=== PATIENT | female | born 1970 | race Caucasian/White ===

== ENCOUNTER 2016-11-24 23:52 | Emergency (ER) | payer OTHER ==
[~2016-11-24] VITALS: Ht 182.9 cm; Wt 86.2 kg
[2016-11-25] MEDS ORDERED: VENTOLIN 90 MCG INH (00:13)
[2016-11-25] MEDS ORDERED: NAPR500T3 PO (00:14)
[2016-11-25] MEDS ORDERED: FERR325T28 PO (00:15)
--- NOTE | 2016-11-25 00:30 | NUR ---
Patient discharged to home in stable conditon. Written and verbal after care instructions given. Patient verbalizes understanding of instructions. walked out of ER with steady gait
== END 2016-11-25 00:31 | disposition home or self-care (01) ==
LOC: ER 23:52
DX: Z76.0 Encounter for issue of repeat prescription (principal); F17.200 Nicotine dependence, unspecified, uncomplicated
CPT/HCPCS: A4663

== ENCOUNTER 2016-12-06 08:53 | Emergency (ER) | payer OTHER ==
[~2016-12-06] VITALS: Ht 182.9 cm; Wt 83.9 kg
[~2016-12-06 08:53] MED LIST: FERR325T28 PO; NAPR500T3 PO; VENTOLIN 90 MCG INH
[2016-12-06] MEDS ORDERED: HYDROMORPHONE 1 MG/1 ML DISP.SYRIN IV ONE (09:30)
[2016-12-06] MEDS ORDERED: IV NORMAL SALINE 1000 ML BAG IV ONE (09:30)
[2016-12-06] MEDS ORDERED: ONDANSETRON 4 MG/2 ML VIAL IV ONE (09:30)
[2016-12-06 09:48] LABS: BASOPHILS % (AUTO) 0.3 % (0.0-2.0); EOSINOPHILS # (AUTO) 0.1 K/uL (0.0-0.7); EOSINOPHILS % (AUTO) 1.5 % (0.0-7.0); HEMATOCRIT 37.9 % (31.2-41.9); HEMOGLOBIN 12.7 g/dL (10.9-14.3); LYMPHOCYTES # (AUTO) 1.7 K/uL (20.0-40.0); LYMPHOCYTES % (AUTO) 19.7 % (20.5-51.5); MEAN CORPUSCULAR HEMOGLOBIN 28.9 uug (24.7-32.8); MEAN CORPUSCULAR HGB CONC 34 g/dL (32.3-35.6); MEAN CORPUSCULAR VOLUME 86.3 fL (75.5-95.3); MONOCYTES # (AUTO) 0.4 K/uL (2.0-10.0); MONOCYTES % (AUTO) 4.6 % (0.0-11.0); NEUTROPHILS # (AUTO) 6.4 K/uL (1.8-8.9); NEUTROPHILS % (AUTO) 73.9 % (38.5-71.5); PLATELET COUNT (AUTO) 306 K/uL (179-408); RED BLOOD CELL COUNT(AUTO) 4.39 MIL/uL (3.63-4.92); RED CELL DISTRIBUTION WIDTH 13.2 % (12.3-17.7); WHITE BLOOD COUNT (AUTO) 8.6 K/uL (3.8-11.8)
[2016-12-06 09:54] LABS: CALCIUM 8.9 mg/dL (8.5-10.1); CREATININE 0.8 mg/dL (0.6-1.3); POTASSIUM 3.4 mmol/L (3.5-5.1)
[2016-12-06] MEDS ORDERED: ONDANSETRON 4 MG/2 ML VIAL ONE (09:54)
[2016-12-06] MEDS ORDERED: HYDROMORPHONE 1 MG/1 ML DISP.SYRIN ONE (09:54)
[2016-12-06 10:00] LABS: ALBUMIN 3.3 g/dL (3.4-5.0); BILIRUBIN,TOTAL 0.7 mg/dL (0.2-1.0)
[2016-12-06 10:14] LABS: BILIRUBIN,DIRECT 0.1 mg/dL (0.0-0.2)
[2016-12-06 10:59] LABS: *BLOOD, URINE Trace-intact (NEGATIVE); *CLARITY,URINE TURBID (CLEAR); *COLOR,URINE YELLOW (YELLOW); *KETONES,URINE NEGATIVE (NEGATIVE); *PROTEIN,URINE 1+ (NEGATIVE); LEUKOCYTE ESTERASE ,URINE NEGATIVE (NEGATIVE); NITRITE, URINE NEGATIVE (NEGATIVE); PH,URINE 5.5 (5.0-8.0); UGLUCOSE NEGATIVE (NEGATIVE)
[2016-12-06 11:12] LABS: *BILIRUBIN,URIN 1+ (NEGATIVE)
[2016-12-06 11:13] LABS: BACTERIA,URINE MANY /HPF (NONE SEEN); CALCIUM OXALATE CRYSTALS,UR FEW /HPF (NONE SEEN); SQUAMOUS EPITHELIAL CELL,UR MODERATE /HPF (NONE SEEN)
[2016-12-06] MEDS ORDERED: CEFTRIAXONE 1 G in IV DEXTROSE 5% 50 ML IV ONE (11:30)
[2016-12-06] MEDS ORDERED: CEFTRIAXONE 1 G VIAL ONE (11:31)
--- NOTE | 2016-12-06 12:02 | NUR ---
Patient discharged to home in stable conditon. Written and verbal after care instructions given. Patient verbalizes understanding of instructions.PT WALKS IN STEADY GAIT, SAYS FEELS BETTER, DENEIS PAIN OR NAUSEA AT THIS POINT. PT NOT DRIVING, ACCOMPANIED BY SO.
[2016-12-06 12:08] VITALS: BP 119/69
== END 2016-12-06 12:03 | disposition home or self-care (01) ==
LOC: ER 08:53
DX: N39.0 Urinary tract infection, site not specified (principal); F17.200 Nicotine dependence, unspecified, uncomplicated
CPT/HCPCS: 36415; 83690; 84703; 85025; A4663; J0696; J1170; J2405; J3490; J7030

== ENCOUNTER 2018-01-03 22:58 | Emergency (ER) | payer OTHER ==
[~2018-01-03] VITALS: Ht 182.9 cm; Wt 86.2 kg
[~2018-01-03 22:58] MED LIST changes: +NAPR-1009 PO; -NAPR500T3 PO
--- NOTE | 2018-01-03 23:30 | NUR ---
PT AMBULATED TO ER WITH MULTIPLE COMPLAINTS: CHRONIC BACK PAIN, DIARRHEA FOR THE PAST 3 DAYS, AND WANTS A MEDICATION REFILL FOR HER INHALER. AAOX4. VSS. SA02 100% RA.
--- NOTE | 2018-01-03 23:32 | NUR ---
GREGG ANNE AT BEDSIDE FOR MSE.
[2018-01-03] MEDS ORDERED: KETOROLAC TROMETHAMINE 30 MG INJ IVP ONE (23:45)
[2018-01-03] MEDS ORDERED: IV NORMAL SALINE 1000 ML BAG IV ONE (23:45)
[2018-01-03] MEDS ORDERED: KETOROLAC TROMETHAMINE 30 MG INJ ONE (23:51)
[2018-01-03 23:52] LABS: BASOPHILS % (AUTO) 0.4 % (0.0-2.0); EOSINOPHILS # (AUTO) 0.2 K/uL (0.0-0.7); HEMATOCRIT 37.7 % (31.2-41.9); HEMOGLOBIN 12.9 g/dL (10.9-14.3); LYMPHOCYTES # (AUTO) 1.9 K/uL (20.0-40.0); LYMPHOCYTES % (AUTO) 25.9 % (20.5-51.5); MEAN CORPUSCULAR HEMOGLOBIN 30.2 uug (24.7-32.8); MEAN CORPUSCULAR HGB CONC 34 g/dL (32.3-35.6); MEAN CORPUSCULAR VOLUME 88.5 fL (75.5-95.3); MONOCYTES # (AUTO) 0.7 K/uL (2.0-10.0); MONOCYTES % (AUTO) 8.8 % (0.0-11.0); NEUTROPHILS # (AUTO) 4.7 K/uL (1.8-8.9); NEUTROPHILS % (AUTO) 62.9 % (38.5-71.5); PLATELET COUNT (AUTO) 238 K/uL (179-408); RED BLOOD CELL COUNT(AUTO) 4.26 MIL/uL (3.63-4.92); WHITE BLOOD COUNT (AUTO) 7.5 K/uL (3.8-11.8)
[2018-01-03 23:56] LABS: CREATININE 0.9 mg/dL (0.6-1.3); POTASSIUM 3.9 mmol/L (3.5-5.1)
[2018-01-04 00:01] LABS: BILIRUBIN,DIRECT 0.1 mg/dL (0.0-0.2); BILIRUBIN,TOTAL 0.4 mg/dL (0.2-1.0); TOTAL PROTEIN, SERUM 7.2 g/dL (6.4-8.2)
--- NOTE | 2018-01-04 00:30 | NUR ---
PT RESTING IN BED COMFORTABLY WATCHING TELEVISION. NO ACUTE DISTRESS NOTED. VSS. AWAITING TEST RESULTS.
--- NOTE | 2018-01-04 01:23 | NUR ---
Patient discharged to home in stable conditon. Written and verbal after care instructions given. Patient verbalizes understanding of instructions. Patient ambulated out of ER in steady gait. All belongings with pt. No acute distress noted. VSS. IV removed.
[2018-01-04 01:26] VITALS: BP 127/84
== END 2018-01-04 01:26 | disposition home or self-care (01) ==
LOC: ER 22:58
DX: R19.7 Diarrhea, unspecified (principal); M54.16 Radiculopathy, lumbar region; F17.200 Nicotine dependence, unspecified, uncomplicated
CPT/HCPCS: 36415; 71045; 80048; 80076; 84484; 85025; 93005; 96361; 96374; 99285; A4663; J1885; J7030; 70030-TC

== ENCOUNTER 2022-04-23 04:36 | Emergency (ER) | payer OTHER ==
[~2022-04-23] VITALS: Ht 180.3 cm; Wt 95.3 kg
--- NOTE | 2022-04-23 04:58 | NUR ---
pt in room 4b with c/o right breast lump sore throat several weeks, bilat foot swelling. pt able to ambulate.
--- NOTE | 2022-04-23 05:02 | NUR ---
Dr. Mon in to see pt for MSE.
[2022-04-23] MEDS ORDERED: OXYCODONE/APAP 5-325 MG TABLET PO ONE (05:15)
[2022-04-23] MEDS ORDERED: OXYCODONE/APAP 5-325 MG TABLET ONE (05:25)
[2022-04-23 05:40] LABS: HEMATOCRIT 38.2 % (31.2-41.9); MEAN CORPUSCULAR HEMOGLOBIN 29.3 uug (24.7-32.8); MEAN CORPUSCULAR VOLUME 86.4 fL (75.5-95.3); PLATELET COUNT (AUTO) 340 K/uL (179-408)
[2022-04-23 05:41] LABS: *BLOOD, URINE NEGATIVE (NEGATIVE); *CLARITY,URINE CLEAR (CLEAR); *COLOR,URINE YELLOW (YELLOW); *KETONES,URINE TRACE (NEGATIVE); LEUKOCYTE ESTERASE ,URINE NEGATIVE (NEGATIVE); NITRITE, URINE NEGATIVE (NEGATIVE); PH,URINE 5.5 (5.0-8.0); UGLUCOSE NEGATIVE (NEGATIVE)
[2022-04-23 05:47] LABS: *BILIRUBIN,URIN 2+ (NEGATIVE)
[2022-04-23] MEDS ORDERED: NICO1PAT35 TP (05:56)
[2022-04-23] MEDS ORDERED: OXYC-128 PO (05:58)
[2022-04-23 06:35] LABS: ALANINE AMINOTRANSFERASE 17 U/L (14-59); ALKALINE PHOSPHATASE 81 U/L (50-136); ASPARTATE AMINOTRANSFERASE 10 U/L (15-37); BILIRUBIN,DIRECT 0.1 mg/dL (0.0-0.2); BILIRUBIN,TOTAL 0.6 mg/dL (0.2-1.0); CARBON DIOXIDE 26 mmol/L (21-32); CHLORIDE 102 mmol/L (98-107); GLUCOSE 125 mg/dL (74-106); POTASSIUM 3.2 mmol/L (3.5-5.1); TOTAL PROTEIN, SERUM 7.5 g/dL (6.4-8.2); UREA NITROGEN, BLOOD 12 mg/dL (7-18)
--- NOTE | 2022-04-23 07:01 | NUR ---
pt is clear for d/c home per dr. mclaughlin. pt has additional questions. I alerted the doctor she is in speaking with the pt.
[2022-04-23] MEDS ORDERED: NYSTATIN SUSPENSION 5 ML LIQUID UDC PO STA (07:15)
[2022-04-23] MEDS ORDERED: LIDOCAINE 4% TOPICAL 50 ML BOTTLE TP ONE (07:15)
--- NOTE | 2022-04-23 07:22 | NUR ---
COVID swab collected and sent to LAB.
[2022-04-23] MEDS ORDERED: NYST5ORA PO (09:10)
[2022-04-23 09:57] VITALS: BP 119/72
--- NOTE | 2022-04-23 09:58 | NUR ---
Patient discharged to home in stable condition. Written and verbal after care instructions given. Patient verbalizes understanding of instructions. Stressed follow up or return to ER for worsening s/s.
== END 2022-04-23 09:58 | disposition home or self-care (01) ==
LOC: ER 04:36
DX: R53.83 Other fatigue (principal); R50.9 Fever, unspecified; B37.0 Candidal stomatitis; R52 Pain, unspecified; Z20.822 Contact with and (suspected) exposure to COVID-19; R94.31 Abnormal electrocardiogram [ECG] [EKG]; R60.0 Localized edema; F17.210 Nicotine dependence, cigarettes, uncomplicated
CPT/HCPCS: 36415; 71045; 83735; 84484; 85025; 86403; 87070; 87806; 93005; A4663

== ENCOUNTER 2022-12-18 22:16 | Emergency (ER) | payer OTHER ==
[~2022-12-18] VITALS: Ht 180.3 cm; Wt 99.8 kg
[~2022-12-18 22:16] MED LIST changes: +NICO1PAT35 TP; +NYST5ORA PO; +OXYC-128 PO
--- NOTE | 2022-12-18 23:07 | NUR ---
Dr. Estes at bedside for MSE.
--- NOTE | 2022-12-18 23:30 | NUR ---
Xray at bedside.
[2022-12-18 23:47] LABS: CARBON DIOXIDE 28 mmol/L (21-32); CHLORIDE 102 mmol/L (98-107); CREATININE 0.9 mg/dL (0.6-1.3); GLUCOSE 115 mg/dL (74-106); POTASSIUM 3.9 mmol/L (3.5-5.1); UREA NITROGEN, BLOOD 13 mg/dL (7-18)
[2022-12-19] LABS: ALANINE AMINOTRANSFERASE 28 U/L (14-59); ALKALINE PHOSPHATASE 76 U/L (50-136); ASPARTATE AMINOTRANSFERASE 23 U/L (15-37); BILIRUBIN,DIRECT 0.1 mg/dL (0.0-0.2); BILIRUBIN,TOTAL 0.4 mg/dL (0.2-1.0); TOTAL PROTEIN, SERUM 7.1 g/dL (6.4-8.2)
[2022-12-19 00:28] LABS: HEMATOCRIT 40.6 % (31.2-41.9); MEAN CORPUSCULAR HEMOGLOBIN 29.2 uug (24.7-32.8); MEAN CORPUSCULAR VOLUME 86.9 fL (75.5-95.3); PLATELET COUNT (AUTO) 283 K/uL (179-408)
[2022-12-19] MEDS ORDERED: NICO1PAT44 TP (01:18)
[2022-12-19] MEDS ORDERED: [UNRECOGNIZED DRUG - OTHER] PO (01:18)
--- NOTE | 2022-12-19 01:48 | NUR ---
Patient discharged to home in stable condition. Written and verbal after care instructions given. Patient verbalizes understanding of instructions. Stressed follow up or return to ER for worsening s/s. Patient out of ER with steady gait, no acute signs of distress, VSS, all belongings taken, provided with copies of lab results.
[2022-12-19 01:49] VITALS: BP 134/78
== END 2022-12-19 01:49 | disposition home or self-care (01) ==
LOC: ER 22:18
DX: N63.10 Unspecified lump in the right breast, unspecified quadrant (principal); F17.210 Nicotine dependence, cigarettes, uncomplicated; R06.00 Dyspnea, unspecified; R07.89 Other chest pain; Z71.6 Tobacco abuse counseling; Z79.899 Other long term (current) drug therapy
CPT/HCPCS: 36415; 71045; 84484; 85025; 93005; A4663

== ENCOUNTER 2023-08-27 23:18 | Inpatient (IN) | payer OTHER ==
[~2023-08-27] VITALS: Ht 182.9 cm; Wt 95.0 kg
[~2023-08-27 23:18] MED LIST changes: +NICO1PAT44 TP; +[UNRECOGNIZED DRUG - OTHER] PO
[2023-08-27] MEDS ORDERED: ONDANSETRON 4 MG/2 ML VIAL IV ONE (23:45)
[2023-08-27] MEDS ORDERED: HYDROMORPHONE 1 MG/1 ML DISP.SYRIN IV ONE (23:45)
[2023-08-27] MEDS ORDERED: PIPERACILLIN SODIUM/TAZOBACTAM 3.375 G in IV DEXTROSE 5% 50 ML IV ONE (23:45)
[2023-08-27] MEDS ORDERED: VANCOMYCIN IV 1,000 MG in IV DEXTROSE 5% 250 ML IV ONE (23:45)
[2023-08-28] MEDS ORDERED: PIPERACILLIN/TAZOBACTAM/D5W 50 ML IV ONE (00:23)
[2023-08-28] MEDS ORDERED: ONDANSETRON 4 MG/2 ML VIAL ONE (00:23)
[2023-08-28] MEDS ORDERED: VANCOMYCIN IV 200 ML ONE (00:23)
[2023-08-28] MEDS ORDERED: HYDROMORPHONE 1 MG/1 ML DISP.SYRIN ONE ×2 (00:24→03:53)
[2023-08-28 01:14] LABS: BASOPHILS # (AUTO) 0.1 K/UL (0.0-0.2); BASOPHILS % (AUTO) 0.7 % (0.0-2.0); EOSINOPHILS # (AUTO) 0.2 K/uL (0.0-0.7); EOSINOPHILS % (AUTO) 2.4 % (0.0-7.0); HEMOGLOBIN 12.9 g/dL (10.9-14.3); LYMPHOCYTES # (AUTO) 1.7 K/uL (0.8-4.8); LYMPHOCYTES % (AUTO) 21.4 % (20.5-51.5); MEAN CORPUSCULAR HEMOGLOBIN 29.5 uug (24.7-32.8); MEAN CORPUSCULAR HGB CONC 34 g/dL (32.3-35.6); MEAN CORPUSCULAR VOLUME 86.7 fL (75.5-95.3); MONOCYTES # (AUTO) 0.5 K/uL (0.1-1.30); MONOCYTES % (AUTO) 6.2 % (0.0-11.0); NEUTROPHILS # (AUTO) 5.4 K/uL (1.8-8.9); NEUTROPHILS % (AUTO) 69.3 % (38.5-71.5); PLATELET COUNT (AUTO) 296 K/uL (179-408); RED BLOOD CELL COUNT(AUTO) 4.38 MIL/uL (3.63-4.92); WHITE BLOOD COUNT (AUTO) 7.8 K/uL (3.8-11.8)
[2023-08-28 01:15] LABS: CALCIUM 8.9 mg/dL (8.5-10.1); CARBON DIOXIDE 27 mmol/L (21-32); CHLORIDE 104 mmol/L (98-107); CREATININE 0.8 mg/dL (0.6-1.3); GLUCOSE 95 mg/dL (74-106); POTASSIUM 3.4 mmol/L (3.5-5.1); SODIUM SERUM 142 mmol/L (136-145); UREA NITROGEN, BLOOD 11 mg/dL (7-18)
[2023-08-28 01:16] LABS: DIFFERENTIAL COMMENT 1
[2023-08-28 01:24] LABS: ALANINE AMINOTRANSFERASE 26 U/L (14-59); ALBUMIN 3.6 g/dL (3.4-5.0); ALKALINE PHOSPHATASE 80 U/L (50-136); ASPARTATE AMINOTRANSFERASE 24 U/L (15-37); BILIRUBIN,DIRECT 0.1 mg/dL (0.0-0.2); BILIRUBIN,TOTAL 0.7 mg/dL (0.2-1.0); TOTAL PROTEIN, SERUM 7.3 g/dL (6.4-8.2)
[2023-08-28] MEDS ORDERED: HYDROCODONE/APAP 5-325MG TABLET PO PRN (03:30)
[2023-08-28] MEDS ORDERED: HYDROMORPHONE 1 MG/1 ML DISP.SYRIN IV ONE (03:30)
[2023-08-28] MEDS ORDERED: MAGNESIUM HYDROXIDE 30 ML LIQUID UDC PO PRN (03:30)
[2023-08-28] MEDS ORDERED: REMEDY ESSENTIAL ZINC PASTE 113 GM TP PRN (03:30)
[2023-08-28] MEDS ORDERED: ACETAMINOPHEN 325 MG TABLET PO PRN (03:30)
[2023-08-28] MEDS ORDERED: ONDANSETRON 4 MG/2 ML VIAL IV PRN (03:30)
[2023-08-28 04:20] VITALS: BP 110/48; TEMP 98; O2SAT 95
[2023-08-28] MEDS: IV NS 1000 ML 1,000 ML IV PRN (05:15)
[2023-08-28] MEDS: PIPERACILLIN SODIUM/TAZOBACTAM 3.375 G in IV DEXTROSE 5% 50 ML IV SCH ×2 (06:00→09:10)
[2023-08-28] MEDS ORDERED: GABA100C PO (06:05)
[2023-08-28] MEDS ORDERED: BUPR100T5 PO (06:05)
[2023-08-28] MEDS ORDERED: MIRT-121 PO (06:05)
[2023-08-28] MEDS: PANTOPRAZOLE SODIUM 40 MG TABLET.DR PO SCH (06:08)
[2023-08-28] MEDS: MORPHINE SULFATE 2 MG/1 ML DISP.SYRIN IV PRN ×2 (06:09→18:37)
[2023-08-28] MEDS ORDERED: GABA400C PO (06:21)
[2023-08-28 08:52] VITALS: BP 105/55; TEMP 98; O2SAT 96
[2023-08-28] MEDS: PIPERACILLIN SODIUM/TAZOBACTAM 3.375 G in IV DEXTROSE 5% 100 ML IV SCH ×2 (09:07→16:00)
[2023-08-28 11:07] VITALS: BP 113/75; TEMP 98.4; O2SAT 96
[2023-08-28] MEDS ORDERED: POTASSIUM CHLORIDE 20 MEQ TAB.PRT.SR PO ONE (11:15)
[2023-08-28] MEDS: VANCOMYCIN IV 1,500 MG in IV DEXTROSE 5% 500 ML IV SCH (12:51)
[2023-08-28] MEDS ORDERED: PIPERACILLIN SODIUM/TAZOBACTAM 3.375 G in IV DEXTROSE 5% 50 ML IV SCH (14:00)
[2023-08-28 15:31] VITALS: BP 125/78; TEMP 97.8; O2SAT 97
[2023-08-28] MEDS ORDERED: LORAZEPAM 0.5 MG TABLET PO PRN (18:45)
[2023-08-28 20:00] VITALS: BP 112/69; TEMP 98; O2SAT 99
[2023-08-28 20:14] VITALS: BP 112/69; TEMP 98; O2SAT 99
[2023-08-29 04:00] VITALS: BP 126/80; TEMP 98.6; O2SAT 98
[2023-08-29 04:12] VITALS: BP 126/80; TEMP 98.6; O2SAT 98
[2023-08-29] MEDS: PANTOPRAZOLE SODIUM 40 MG TABLET.DR PO SCH (06:42)
[2023-08-29] MEDS: PIPERACILLIN SODIUM/TAZOBACTAM 3.375 G in IV DEXTROSE 5% 100 ML IV SCH ×3 (09:20)
[2023-08-29] MEDS: VANCOMYCIN IV 1,500 MG in IV DEXTROSE 5% 500 ML IV SCH ×4 (11:19→21:37)
[2023-08-29 11:54] LABS: CALCIUM 8.4 mg/dL (8.5-10.1); CREATININE 0.7 mg/dL (0.6-1.3); MAGNESIUM 2.3 mg/dL (1.8-2.4); PHOSPHOROUS 2.8 mg/dL (2.5-4.9); POTASSIUM 3.8 mmol/L (3.5-5.1)
[2023-08-29 11:56] VITALS: BP 137/80; TEMP 98.9; O2SAT 97
[2023-08-29] MEDS ORDERED: MORPHINE SULFATE 4 MG/1 ML DISP.SYRIN IV PRN (13:30)
[2023-08-29] MEDS: PIPERACILLIN SODIUM/TAZOBACTAM 3.375 G in IV DEXTROSE 5% 50 ML IV SCH ×2 (14:35→21:04)
[2023-08-29 15:45] VITALS: BP 129/74; TEMP 98.3; O2SAT 97
[2023-08-29 18:16] LABS: BASOPHILS # (AUTO) 0.1 K/UL (0.0-0.2); EOSINOPHILS # (AUTO) 0.2 K/uL (0.0-0.7); EOSINOPHILS % (AUTO) 2.3 % (0.0-7.0); HEMATOCRIT 39.1 % (31.2-41.9); LYMPHOCYTES # (AUTO) 1.6 K/uL (0.8-4.8); LYMPHOCYTES % (AUTO) 23.6 % (20.5-51.5); MEAN CORPUSCULAR HEMOGLOBIN 29.7 uug (24.7-32.8); MEAN CORPUSCULAR HGB CONC 33 g/dL (32.3-35.6); MEAN CORPUSCULAR VOLUME 89.1 fL (75.5-95.3); MONOCYTES # (AUTO) 0.4 K/uL (0.1-1.30); MONOCYTES % (AUTO) 6.3 % (0.0-11.0); NEUTROPHILS # (AUTO) 4.4 K/uL (1.8-8.9); NEUTROPHILS % (AUTO) 66.8 % (38.5-71.5); PLATELET COUNT (AUTO) 285 K/uL (179-408); RED BLOOD CELL COUNT(AUTO) 4.38 MIL/uL (3.63-4.92); WHITE BLOOD COUNT (AUTO) 6.6 K/uL (3.8-11.8)
[2023-08-29 19:15] VITALS: BP 112/66; TEMP 98.4; O2SAT 96
[2023-08-29] MEDS ORDERED: SILVER NITRATE APPLICATOR STICK EACH TP ONE (20:11)
[2023-08-29] MEDS: NYSTATIN POWDER 15 GM BOTTLE TOP SCH (21:01)
[2023-08-29] MEDS: IV NS 1000 ML 1,000 ML IV PRN (22:07)
[2023-08-30] MEDS: PIPERACILLIN SODIUM/TAZOBACTAM 3.375 G in IV DEXTROSE 5% 50 ML IV SCH ×2 (05:44→13:35)
[2023-08-30 06:00] VITALS: BP 125/75; TEMP 98.4; O2SAT 96
[2023-08-30] MEDS: PANTOPRAZOLE SODIUM 40 MG TABLET.DR PO SCH (06:14)
[2023-08-30 07:21] LABS: BASOPHILS % (AUTO) 0.3 % (0.0-2.0); EOSINOPHILS # (AUTO) 0.2 K/uL (0.0-0.7); EOSINOPHILS % (AUTO) 2.6 % (0.0-7.0); HEMATOCRIT 37.6 % (31.2-41.9); HEMOGLOBIN 12.5 g/dL (10.9-14.3); LYMPHOCYTES # (AUTO) 1.5 K/uL (0.8-4.8); LYMPHOCYTES % (AUTO) 22.9 % (20.5-51.5); MEAN CORPUSCULAR HEMOGLOBIN 29.5 uug (24.7-32.8); MEAN CORPUSCULAR HGB CONC 33 g/dL (32.3-35.6); MEAN CORPUSCULAR VOLUME 88.7 fL (75.5-95.3); MONOCYTES # (AUTO) 0.4 K/uL (0.1-1.30); NEUTROPHILS # (AUTO) 4.4 K/uL (1.8-8.9); NEUTROPHILS % (AUTO) 68.2 % (38.5-71.5); PLATELET COUNT (AUTO) 267 K/uL (179-408); RED BLOOD CELL COUNT(AUTO) 4.24 MIL/uL (3.63-4.92); RED CELL DISTRIBUTION WIDTH 13.9 % (12.3-17.7); WHITE BLOOD COUNT (AUTO) 6.4 K/uL (3.8-11.8)
[2023-08-30 07:27] LABS: DIFFERENTIAL COMMENT 1
[2023-08-30] MEDS: NYSTATIN POWDER 15 GM BOTTLE TOP SCH (08:36)
[2023-08-30] MEDS ORDERED: SILVER NITRATE APPLICATOR STICK EACH TP ONE (09:00)
[2023-08-30] MEDS ORDERED: IV NORMAL SALINE 250 ML IV ONE (09:36)
[2023-08-30] MEDS ORDERED: IOHEXOL 300MG/ML 100 ML INFUS..BTL ONE (09:36)
[2023-08-30] MEDS ORDERED: SWABABLE VALVE TRANSFER SET EA MC ONE (09:36)
[2023-08-30] MEDS: VANCOMYCIN IV 1,500 MG in IV DEXTROSE 5% 500 ML IV SCH (11:47)
[2023-08-30 12:18] VITALS: BP 124/79; TEMP 98.7; O2SAT 95
[2023-08-30] MEDS ORDERED: LIDOCAINE 2%-EPI 1:100,000 20 ML VIAL IJ ONE (14:00)
[2023-08-30] MEDS ORDERED: CELLULOSE,OXIDIZED 2x3 MC ONE (15:29)
[2023-08-30 16:12] VITALS: BP 122/70; TEMP 98.8; O2SAT 95
[2023-08-31 08:08] LABS: CANCER ANTIGEN 15-3 42.1 U/mL (0.0-25.0); CARCINOEMBRYONIC AG (CEA) 3.6 ng/mL (0.0-4.7)
== END 2023-08-30 17:15 | disposition left against medical advice (07) | DRG 385 ==
LOC: ER 23:21 → MEDSURG3 08-28 03:35
PROVIDERS: ADMIT Nurse Practitioner Acute Care; ATTEND Internal Medicine
PROC: 05HY33Z Insertion of Infusion Device into Upper Vein, Percutaneous Approach (ICD-10-PCS; principal; 2023-08-29)
PROC: 0HBT3ZX Excision of Right Breast, Percutaneous Approach, Diagnostic (ICD-10-PCS; 2023-08-30)
DX: N61.1 Abscess of the breast and nipple (principal); K83.8 Other specified diseases of biliary tract; E66.3 Overweight; E87.6 Hypokalemia; F17.210 Nicotine dependence, cigarettes, uncomplicated; B37.2 Candidiasis of skin and nail; N63.12 Unspecified lump in the right breast, upper inner quadrant; R59.0 Localized enlarged lymph nodes; N64.59 Other signs and symptoms in breast; K76.9 Liver disease, unspecified; N64.1 Fat necrosis of breast; F32.A Depression, unspecified; Z80.3 Family history of malignant neoplasm of breast; Z80.8 Family history of malignant neoplasm of other organs or systems; Z68.28 Body mass index [BMI] 28.0-28.9, adult; Z80.0 Family history of malignant neoplasm of digestive organs; Z53.29 Procedure and treatment not carried out because of patient's decision for other reasons
CPT/HCPCS: 36415; 71045; 71260; 76642; 82378; 83735; 84100; 84484; 85025; 85730; 86300; 87040; 93005; A4663; G0378; J1170; J2270; J2405; J2543; J3370; J7040; J7060; Q9967